=== PATIENT | male | born 1985 | race Hispanic/Latino ===

== ENCOUNTER 2017-01-27 17:20 | Emergency (ER) | payer MEDICAID, OTHER ==
[2017-01-27 17:30] VITALS: BMI 30.7
--- NOTE | 2017-01-27 18:25 | ED PDOC ---
Arrival/HPI - General Historian: Patient, Partner (Girl Friend) EM Caveat: Psychotic - History of Present Illness Time/Duration: > month Symptom Onset: Gradual Symptom Course: Worsening - General Chief Complaint: Psychiatric Evaluation Time Seen by Provider: 01/27/17 17:37 - History of Present Illness Narrative History of Present Illness (Text): 01/27/17 18:24 History obtained from chart review, Girl Friend at bedside. 32yo M with Past medical history including Anxiety, Depression, HIV, Schizophrenia here for evaluation of anxiety. Patient does not provide much history. Girlfriend at bedside provides most of the history. Patient has a history of multiple psychiatric issues, was seeing Dr. Holly in May 2016. She states that he was taking his meds at that time and was doing well. However , patient stopped taking his medications for the past few months. Girlfriend notes that his anxiety has gradually gotten worse since then. She notes increased anxiety due to financial constraints due to loss of employment as well. She states that he has had about 2 hours of sleep over the past 6 days. He recently traveled to [place] with his friend and returned with superficial wounds to the right knuckles. He states that he "just does not want to hurt my mother anymore." Patient does not provide any further history. Denies any pains. Psych: Dr. Holly PMHx: HIV, Schizophrenia, Anxiety, Depression Allergy: PCNs (Indra Guthrie) Past Medical History - Provider Review Nursing Documentation Reviewed: Yes - Past History Past History: Unable to Obtain - Infectious Disease Hx of Infectious Diseases: None - Tetanus Immunization Tetanus Immunization: Up to Date - Past Medical History Past Medical History: No Previous - Cardiac Hx Cardiac Disorders: No - Pulmonary Hx Respiratory Disorders: No - Neurological Hx Neurological Disorder: No - HEENT Hx HEENT Disorder: No - Renal Hx Renal Disorder: No - Endocrine/Metabolic Hx Endocrine Disorders: No - Hematological/Oncological Hx Blood Disorders: Yes - Integumentary Hx Dermatological Disorder: No - Musculoskeletal/Rheumatological Hx Musculoskeletal Disorders: No Hx Falls: No - Gastrointestinal Hx Gastrointestinal Disorders: No Other/Comment: elevated liver enzymes - Genitourinary/Gynecological Hx Genitourinary Disorders: No Hx Reproductive Disorders: No - Psychiatric Hx Anxiety: Yes Hx Depression: Yes Hx Schizophrenia: Yes Hx Substance Use: No (DENIES DRUG USE) - Surgical History Hx Orthopedic Surgery: Yes (left hand) - Anesthesia Hx Anesthesia: Yes Hx Anesthesia Reactions: No Hx Malignant Hyperthermia: No - Suicidal Assessment Feels Threatened In Home Enviroment: No Family/Social History - Physician Review Nursing Documentation Reviewed: Yes Family/Social History: Unknown Family HX Smoking Status: Heavy Smoker > 10 Cigarettes Daily Hx Alcohol Use: Yes (YESTERDAY) Frequency of alcohol use: Socially Hx Substance Use: No (DENIES DRUG USE) Substance used: marijuana Hx Substance Use Treatment: No Allergies/Home Meds Allergies/Adverse Reactions: Allergies Penicillins Allergy (Verified 01/27/17 17:29) ANGIOEDEMA Review of Systems - Review of Systems Systems not reviewed;Unavailable: Psychotic Physical Exam - Physical Exam Physical Exam Limitations: Psychotic, Uncooperative Vital Signs Reviewed: Yes Temperature: Afebrile Blood Pressure: Hypertensive Pulse: Tachycardic Respiratory Rate: Normal Appearance: Positive for: Well-Appearing, Non-Toxic, Comfortable Pain Distress: None Mental Status: Positive for: Agitated - Systems Exam Head: Present: Atraumatic, Normocephalic Extroacular Muscles: Present: EOMI Mouth: Present: Moist Mucous Membranes Respiratory/Chest: Present: Clear to Auscultation, Good Air Exchange. No: Respiratory Distress, Accessory Muscle Use, Wheezes, Decreased Breath Sounds Cardiovascular: Present: Normal S1, S2. No: Murmurs Abdomen: No: Tenderness, Distention, Rebound, Guarding, McBurney's Point Tender Upper Extremity: Present: Other (right hand knuckle old wounds, no induration, no erythema, no drainage) Psychiatric: Present: Anxious, Agitated, Hallucinations, Other (Fidgety ) Medical Decision Making ED Course and Treatment: 01/27/17 18:46 32yo M here for psych eval - Agitated. Stopped taking his psych meds for multiple months. - CBC/CMP - Urinalysis, UDS - EKG, Chest X-ray - Xanax 0.5mg PO - Awaiting results prior to psych eval (JerriIndra) chest xray: No active disease, interpreted by me. EKG: Ordered, reviewed, and independently interpreted the EKG. Rate : 97 BPM Rhythm : NSR Interpretation : QRS 100, other intervals normal, normal axis Comparison : No new ST/T changes compared with EKG from 05/31/16 Patient Seen With Resident: In agreement with resident note which contains more details about the patient. Patient was seen and evaluated with resident. Came up with plan and treatment together. A 32 year old male with anxiety. Additional HPI as noted by resident. On physical exam, patient is agitated and anxious. Patient has old wounds on right hand knuckle, no erythema, drainage or induration. Ordered EKG, chest xray, labs and urinalysis. Will give patient Xanax. 01/27/17 21:04 Patient has been medically cleared for PES evaluation. 01/27/17 21:29 Patient seen by PES - will need [facility] [place]. 01/27/17 22:35 Patient awaiting [facility] [place]; will endorse to Dr. Clements. (Anahi Albrecht) - Lab Interpretations Lab Results: 01/27/17 18:25 01/27/17 18:25 Lab Results 01/27/17 21:11: Alcohol, Quantitative < 10 01/27/17 18:25: Urine Color Yellow, Urine Appearance Clear, Urine pH 6.0, Ur Specific [place] >= 1.030, Urine Protein Negative, Urine Glucose (UA) Negative, Urine Ketones Trace H, Urine Blood Negative, Urine Nitrate Negative, Urine Bilirubin Negative, Urine Urobilinogen 0.2, Ur Leukocyte Esterase Negative 01/27/17 18:25: Urine Opiates Screen Negative, Urine Methadone Screen Negative, Ur Barbiturates Screen Negative, Ur Phencyclidine Scrn Negative, Ur Amphetamines Screen Negative, U Benzodiazepines Scrn Negative, U Oth Cocaine Metabols Negative, U Cannabinoids Screen Positive H 01/27/17 18:25: Sodium 141, Potassium 3.6, Chloride 108 H, Carbon Dioxide 24, Anion Gap 13, BUN 13, Creatinine 0.7, Est GFR ( Amer) > 60, Est GFR (Non- Af Amer) > 60, Random Glucose 107, Calcium 9.7, Total Bilirubin 0.7, AST 50, ALT 50, Alkaline Phosphatase 65, Total Protein 7.4, Albumin 4.4, Globulin 3.0, Albumin/Globulin Ratio 1.5, Lipase 75 01/27/17 18:25: WBC 7.7 D, RBC 4.06, Hgb 12.6 L, Hct 35.9 L, MCV 88.4, MCH 31.0 , MCHC 35.1, RDW 12.8, Plt Count 370, MPV 9.7 - RAD Interpretation Radiology Orders: 01/27/17 18:13 CHEST PORTABLE [RAD] Stat - Medication Orders Current Medication Orders: Discontinued Medications Alprazolam (Xanax) 0.5 mg PO STAT STA PRN Reason: Protocol Stop: 01/27/17 18:56 Last Admin: 01/27/17 19:23 Dose: 0.5 mg - PA / SENIOR SUSTAINABILITY CONSULTANT / Resident Statement MD/DO has reviewed & agrees with the documentation as recorded. MD/DO has examined the patient and agrees with the treatment plan. Disposition/Present on Arrival - Present on Arrival Any Indicators Present on Arrival: No History of DVT/PE: No History of Uncontrolled Diabetes: No Urinary Catheter: No History of Decub. Ulcer: No History Surgical Site Infection Following: None - Disposition Have Diagnosis and Disposition been Completed?: No Disposition Time: 23:00 - Disposition Diagnosis: Anxiety Patient Problems: Current Active Problems Problem Status Onset Anxiety Acute Condition: STABLE Referrals: Marcia [place] MD [Primary Care Provider] - Follow up with primary Forms: [employer] (Chinese)
[2017-01-27 18:36] LABS: HEMOGLOBIN 12.6 gm/dL (14.0-18.0); MEAN CELL VOLUME 88.4 fL (80.0-105.0); MEAN CORPUSCULAR HGB CONC 35.1 g/dl (31.0-37.0); MEAN PLATELET VOLUME 9.7 fl (7.0-11.0); RBC 4.06 10^6/uL (3.5-6.1); RED CELL DISTRIBUTION WIDTH 12.8 % (11.5-14.5); WHITE BLOOD COUNT 7.7 10^3/ul (4.5-11.0)
[2017-01-27 18:37] LABS: URINE BILIRUBIN NEGATIVE (NEGATIVE); URINE BLOOD NEGATIVE (NEGATIVE); URINE GLUCOSE (UA) NEGATIVE (NEGATIVE); URINE LEUKOCYTE ESTERASE NEGATIVE Leu/uL (NEGATIVE); URINE NITRATE NEGATIVE (NEGATIVE); URINE PROTEIN NEGATIVE mg/dL (<30 mg/dL); URINE UROBILINOGEN 0.2 E.U./dL (<1 E.U./dL)
[2017-01-27 18:39] LABS: URINE APPEARANCE CLEAR (CLEAR); URINE COLOR YELLOW (YELLOW)
[2017-01-27 18:48] LABS: ALB/GLOB RATIO 1.5 (1.1-1.8); ALBUMIN 4.4 g/dL (3.0-4.8); ALT/SGPT 50 U/L (7-56); AST/SGOT 50 U/L (15-59); BLOOD UREA NITROGEN 13 mg/dL (7-21); CALCIUM 9.7 mg/dL (8.4-10.5); GFR AFRICAN-AMERICAN > 60; GFR NON-AFRICAN AMERICAN > 60; LIPASE 75 U/L (23-300)
[2017-01-27 18:57] LABS: BARBITURATES, UR NEGATIVE (NEGATIVE); BENZODIAZEPINES, UR NEGATIVE (NEGATIVE); OPIATES, UR NEGATIVE (NEGATIVE); PHENCYCLIDINE, UR NEGATIVE (NEGATIVE)
--- NOTE | 2017-01-27 22:48 | ED PDOC ---
Physical Exam Vital Signs Reviewed: Yes Vital Signs Temp Pulse Resp BP Pulse Ox 01/28/17 15:00 98.5 F 77 18 130/91 H 99 01/28/17 13:00 98.0 F 72 18 110/74 99 01/28/17 11:00 98.3 F 92 H 18 132/87 99 01/28/17 09:00 98.1 F 66 18 102/66 98 01/28/17 07:30 98.3 F 72 18 118/81 100 01/28/17 04:00 98.3 F 69 18 122/87 100 01/28/17 02:00 98.3 F 74 18 121/75 100 01/27/17 23:52 98.3 F 83 18 138/85 99 01/27/17 19:28 90 16 127/79 97 01/27/17 17:30 99.6 F 101 H 20 147/70 99 Temperature: Afebrile Blood Pressure: Normal Pulse: Regular Respiratory Rate: Normal Appearance: Positive for: Well-Appearing, Non-Toxic, Comfortable Pain Distress: None Mental Status: Positive for: Alert and Oriented X 3 Medical Decision Making ED Course and Treatment: 01/27/17 23:00 Case endorsed to me by Dr. Albrecht, pending [facility] bed availability for transfer. 01/28/17 07:00 Pt in stable condition. Case endorsed to Dr. Rain, pending [facility] bed availability for transfer. - Lab Interpretations Lab Results: 01/27/17 18:25 01/27/17 18:25 Lab Results 01/27/17 21:11: Alcohol, Quantitative < 10 01/27/17 18:25: Urine Color Yellow, Urine Appearance Clear, Urine pH 6.0, Ur Specific [place] >= 1.030, Urine Protein Negative, Urine Glucose (UA) Negative, Urine Ketones Trace H, Urine Blood Negative, Urine Nitrate Negative, Urine Bilirubin Negative, Urine Urobilinogen 0.2, Ur Leukocyte Esterase Negative 01/27/17 18:25: Urine Opiates Screen Negative, Urine Methadone Screen Negative, Ur Barbiturates Screen Negative, Ur Phencyclidine Scrn Negative, Ur Amphetamines Screen Negative, U Benzodiazepines Scrn Negative, U Oth Cocaine Metabols Negative, U Cannabinoids Screen Positive H 01/27/17 18:25: Sodium 141, Potassium 3.6, Chloride 108 H, Carbon Dioxide 24, Anion Gap 13, BUN 13, Creatinine 0.7, Est GFR ( Amer) > 60, Est GFR (Non- Af Amer) > 60, Random Glucose 107, Calcium 9.7, Total Bilirubin 0.7, AST 50, ALT 50, Alkaline Phosphatase 65, Total Protein 7.4, Albumin 4.4, Globulin 3.0, Albumin/Globulin Ratio 1.5, Lipase 75 01/27/17 18:25: WBC 7.7 D, RBC 4.06, Hgb 12.6 L, Hct 35.9 L, MCV 88.4, MCH 31.0 , MCHC 35.1, RDW 12.8, Plt Count 370, MPV 9.7 - RAD Interpretation Radiology Orders: 01/27/17 18:13 CHEST PORTABLE [RAD] Stat - Medication Orders Current Medication Orders: Discontinued Medications Alprazolam (Xanax) 0.5 mg PO STAT STA PRN Reason: Protocol Stop: 01/27/17 18:56 Last Admin: 01/27/17 19:23 Dose: 0.5 mg Lorazepam (Ativan) Confirm Administered Dose 2 mg .ROUTE .STK-MED ONE Stop: 01/27/17 23:31 Last Admin: 01/27/17 23:52 Dose: Lorazepam (Ativan) 2 mg IVP ONCE STA PRN Reason: Protocol Stop: 01/27/17 23:48 Last Admin: 01/27/17 23:57 Dose: 2 mg Lorazepam (Ativan) Confirm Administered Dose 2 mg .ROUTE .STK-MED ONE Stop: 01/28/17 05:16 Last Admin: 01/28/17 06:41 Dose: Lorazepam (Ativan) 2 mg IVP ONCE ONE PRN Reason: Protocol Stop: 01/28/17 06:08 Last Admin: 01/28/17 06:41 Dose: 2 mg Lorazepam (Ativan) 0.5 mg PO STAT STA PRN Reason: Protocol Stop: 01/28/17 12:13 Last Admin: 01/28/17 16:14 Dose: Lorazepam (Ativan) 2 mg IVP ONCE ONE PRN Reason: Protocol Stop: 01/28/17 12:18 Last Admin: 01/28/17 12:29 Dose: 2 mg Lorazepam (Ativan) 2 mg IM ONCE ONE PRN Reason: Protocol Stop: 01/28/17 15:50 Last Admin: 01/28/17 16:14 Dose: 2 mg Ziprasidone (Geodon Inj) Confirm Administered Dose 20 mg IM .STK-MED ONE Stop: 01/27/17 23:47 Last Admin: 01/27/17 23:52 Dose: Ziprasidone (Geodon Inj) 10 mg IM STAT STA PRN Reason: Protocol Stop: 01/27/17 23:48 Last Admin: 01/27/17 23:57 Dose: 10 mg Disposition/Present on Arrival - Present on Arrival Any Indicators Present on Arrival: No History of DVT/PE: No History of Uncontrolled Diabetes: No Urinary Catheter: No History of Decub. Ulcer: No History Surgical Site Infection Following: None - Disposition Have Diagnosis and Disposition been Completed?: Yes Diagnosis: Anxiety, Bipolar disorder without psychotic features Disposition: Transfer [facility] Disposition Time: 07:00 Condition: STABLE Referrals: Marcia [place] MD [Primary Care Provider] - Follow up with primary Forms: [employer] (Urdu)
--- NOTE | 2017-01-28 07:33 | ED PDOC ---
Physical Exam Vital Signs Reviewed: Yes Vital Signs Temp Pulse Resp BP Pulse Ox 01/28/17 07:30 98.3 F 72 18 118/81 100 01/28/17 04:00 98.3 F 69 18 122/87 100 01/28/17 02:00 98.3 F 74 18 121/75 100 01/27/17 23:52 98.3 F 83 18 138/85 99 01/27/17 19:28 90 16 127/79 97 01/27/17 17:30 99.6 F 101 H 20 147/70 99 Temperature: Afebrile Blood Pressure: Normal Pulse: Tachycardic Respiratory Rate: Normal Medical Decision Making ED Course and Treatment: 01/28/17 07:33 Case endorsed to me by Dr. Clements, pending [facility] [place] for [place]. - Lab Interpretations Lab Results: 01/27/17 18:25 01/27/17 18:25 Lab Results 01/27/17 21:11: Alcohol, Quantitative < 10 01/27/17 18:25: Urine Color Yellow, Urine Appearance Clear, Urine pH 6.0, Ur Specific [place] >= 1.030, Urine Protein Negative, Urine Glucose (UA) Negative, Urine Ketones Trace H, Urine Blood Negative, Urine Nitrate Negative, Urine Bilirubin Negative, Urine Urobilinogen 0.2, Ur Leukocyte Esterase Negative 01/27/17 18:25: Urine Opiates Screen Negative, Urine Methadone Screen Negative, Ur Barbiturates Screen Negative, Ur Phencyclidine Scrn Negative, Ur Amphetamines Screen Negative, U Benzodiazepines Scrn Negative, U Oth Cocaine Metabols Negative, U Cannabinoids Screen Positive H 01/27/17 18:25: Sodium 141, Potassium 3.6, Chloride 108 H, Carbon Dioxide 24, Anion Gap 13, BUN 13, Creatinine 0.7, Est GFR ( Amer) > 60, Est GFR (Non- Af Amer) > 60, Random Glucose 107, Calcium 9.7, Total Bilirubin 0.7, AST 50, ALT 50, Alkaline Phosphatase 65, Total Protein 7.4, Albumin 4.4, Globulin 3.0, Albumin/Globulin Ratio 1.5, Lipase 75 01/27/17 18:25: WBC 7.7 D, RBC 4.06, Hgb 12.6 L, Hct 35.9 L, MCV 88.4, MCH 31.0 , MCHC 35.1, RDW 12.8, Plt Count 370, MPV 9.7 - RAD Interpretation Radiology Orders: 01/27/17 18:13 CHEST PORTABLE [RAD] Stat - Medication Orders Current Medication Orders: Discontinued Medications Alprazolam (Xanax) 0.5 mg PO STAT STA PRN Reason: Protocol Stop: 01/27/17 18:56 Last Admin: 01/27/17 19:23 Dose: 0.5 mg Lorazepam (Ativan) Confirm Administered Dose 2 mg .ROUTE .STK-MED ONE Stop: 01/27/17 23:31 Last Admin: 01/27/17 23:52 Dose: Lorazepam (Ativan) 2 mg IVP ONCE STA PRN Reason: Protocol Stop: 01/27/17 23:48 Last Admin: 01/27/17 23:57 Dose: 2 mg Lorazepam (Ativan) Confirm Administered Dose 2 mg .ROUTE .STK-MED ONE Stop: 01/28/17 05:16 Last Admin: 01/28/17 06:41 Dose: Lorazepam (Ativan) 2 mg IVP ONCE ONE PRN Reason: Protocol Stop: 01/28/17 06:08 Last Admin: 01/28/17 06:41 Dose: 2 mg Ziprasidone (Geodon Inj) Confirm Administered Dose 20 mg IM .STK-MED ONE Stop: 01/27/17 23:47 Last Admin: 01/27/17 23:52 Dose: Ziprasidone (Geodon Inj) 10 mg IM STAT STA PRN Reason: Protocol Stop: 01/27/17 23:48 Last Admin: 01/27/17 23:57 Dose: 10 mg Disposition/Present on Arrival - Present on Arrival Any Indicators Present on Arrival: No History of DVT/PE: No History of Uncontrolled Diabetes: No Urinary Catheter: No History of Decub. Ulcer: No History Surgical Site Infection Following: None - Disposition Have Diagnosis and Disposition been Completed?: Yes Diagnosis: Anxiety, Bipolar disorder without psychotic features Disposition: Trans to Other Acute Care Hosp Disposition Time: 07:00 Condition: STABLE Referrals: Marcia [place] MD [Primary Care Provider] - Follow up with primary Forms: [employer] (Pakistani)
--- NOTE | 2017-01-28 09:49 | RAD ---
HISTORY: eval COMPARISON: 05/31/2016 FINDINGS: LUNGS: No active pulmonary disease. PLEURA: No significant pleural effusion identified, no pneumothorax apparent. CARDIOVASCULAR: Normal. OSSEOUS STRUCTURES: No significant abnormalities. VISUALIZED UPPER ABDOMEN: Normal. OTHER FINDINGS: None. IMPRESSION: No active disease.
--- NOTE | 2017-01-28 20:49 | ED PDOC ---
Physical Exam Vital Signs Reviewed: Yes Vital Signs Temp Pulse Resp BP Pulse Ox 01/28/17 15:00 98.5 F 77 18 130/91 H 99 01/28/17 13:00 98.0 F 72 18 110/74 99 01/28/17 11:00 98.3 F 92 H 18 132/87 99 01/28/17 09:00 98.1 F 66 18 102/66 98 01/28/17 07:30 98.3 F 72 18 118/81 100 01/28/17 04:00 98.3 F 69 18 122/87 100 01/28/17 02:00 98.3 F 74 18 121/75 100 01/27/17 23:52 98.3 F 83 18 138/85 99 01/27/17 19:28 90 16 127/79 97 01/27/17 17:30 99.6 F 101 H 20 147/70 99 Temperature: Afebrile Blood Pressure: Normal Pulse: Regular Respiratory Rate: Normal Appearance: Positive for: Well-Appearing, Non-Toxic, Comfortable Pain Distress: None Mental Status: Positive for: Alert and Oriented X 3 Medical Decision Making ED Course and Treatment: 01/28/17 19:00 Patient signed out to me by . Pending [facility] bed availability for transfer. 01/29/17 07:00 Patient in stable condition. Patient signed out to pending [facility] bed availability for transfer. - Lab Interpretations Lab Results: 01/27/17 18:25 01/27/17 18:25 Lab Results 01/27/17 21:11: Alcohol, Quantitative < 10 01/27/17 18:25: Urine Color Yellow, Urine Appearance Clear, Urine pH 6.0, Ur Specific [place] >= 1.030, Urine Protein Negative, Urine Glucose (UA) Negative, Urine Ketones Trace H, Urine Blood Negative, Urine Nitrate Negative, Urine Bilirubin Negative, Urine Urobilinogen 0.2, Ur Leukocyte Esterase Negative 01/27/17 18:25: Urine Opiates Screen Negative, Urine Methadone Screen Negative, Ur Barbiturates Screen Negative, Ur Phencyclidine Scrn Negative, Ur Amphetamines Screen Negative, U Benzodiazepines Scrn Negative, U Oth Cocaine Metabols Negative, U Cannabinoids Screen Positive H 01/27/17 18:25: Sodium 141, Potassium 3.6, Chloride 108 H, Carbon Dioxide 24, Anion Gap 13, BUN 13, Creatinine 0.7, Est GFR ( Amer) > 60, Est GFR (Non- Af Amer) > 60, Random Glucose 107, Calcium 9.7, Total Bilirubin 0.7, AST 50, ALT 50, Alkaline Phosphatase 65, Total Protein 7.4, Albumin 4.4, Globulin 3.0, Albumin/Globulin Ratio 1.5, Lipase 75 01/27/17 18:25: WBC 7.7 D, RBC 4.06, Hgb 12.6 L, Hct 35.9 L, MCV 88.4, MCH 31.0 , MCHC 35.1, RDW 12.8, Plt Count 370, MPV 9.7 - RAD Interpretation Radiology Orders: 01/27/17 18:13 CHEST PORTABLE [RAD] Stat - Medication Orders Current Medication Orders: Discontinued Medications Alprazolam (Xanax) 0.5 mg PO STAT STA PRN Reason: Protocol Stop: 01/27/17 18:56 Last Admin: 01/27/17 19:23 Dose: 0.5 mg Lorazepam (Ativan) Confirm Administered Dose 2 mg .ROUTE .STK-MED ONE Stop: 01/27/17 23:31 Last Admin: 01/27/17 23:52 Dose: Lorazepam (Ativan) 2 mg IVP ONCE STA PRN Reason: Protocol Stop: 01/27/17 23:48 Last Admin: 01/27/17 23:57 Dose: 2 mg Lorazepam (Ativan) Confirm Administered Dose 2 mg .ROUTE .STK-MED ONE Stop: 01/28/17 05:16 Last Admin: 01/28/17 06:41 Dose: Lorazepam (Ativan) 2 mg IVP ONCE ONE PRN Reason: Protocol Stop: 01/28/17 06:08 Last Admin: 01/28/17 06:41 Dose: 2 mg Lorazepam (Ativan) 0.5 mg PO STAT STA PRN Reason: Protocol Stop: 01/28/17 12:13 Last Admin: 01/28/17 16:14 Dose: Lorazepam (Ativan) 2 mg IVP ONCE ONE PRN Reason: Protocol Stop: 01/28/17 12:18 Last Admin: 01/28/17 12:29 Dose: 2 mg Lorazepam (Ativan) 2 mg IM ONCE ONE PRN Reason: Protocol Stop: 01/28/17 15:50 Last Admin: 01/28/17 16:14 Dose: 2 mg Ziprasidone (Geodon Inj) Confirm Administered Dose 20 mg IM .STK-MED ONE Stop: 01/27/17 23:47 Last Admin: 01/27/17 23:52 Dose: Ziprasidone (Geodon Inj) 10 mg IM STAT STA PRN Reason: Protocol Stop: 01/27/17 23:48 Last Admin: 01/27/17 23:57 Dose: 10 mg - Scribe Statement The provider has reviewed the documentation as recorded by the Jak Borrero Provider Attestation: Provider Scribe Attestation: All medical record entries made by the Jonibe were at my direction and personally dictated by me. I have reviewed the chart and agree that the record accurately reflects my personal performance of the history, physical exam, medical decision making, and the department course for this patient. I have also personally directed, reviewed, and agree with the discharge instructions and disposition. Disposition/Present on Arrival - Present on Arrival Any Indicators Present on Arrival: No History of DVT/PE: No History of Uncontrolled Diabetes: No Urinary Catheter: No History of Decub. Ulcer: No History Surgical Site Infection Following: None - Disposition Have Diagnosis and Disposition been Completed?: Yes Diagnosis: Anxiety, Bipolar disorder without psychotic features Disposition: Transfer [facility] Disposition Time: 07:00 Condition: STABLE Referrals: Marcia [place] MD [Primary Care Provider] - Follow up with primary Forms: [employer] (Divehi)
--- NOTE | 2017-01-29 07:08 | ED PDOC ---
Physical Exam Vital Signs Temp Pulse Resp BP Pulse Ox 01/29/17 15:46 83 18 140/70 100 01/29/17 12:00 98.7 F 76 18 130/77 97 01/28/17 15:00 98.5 F 77 18 130/91 H 99 01/28/17 13:00 98.0 F 72 18 110/74 99 01/28/17 11:00 98.3 F 92 H 18 132/87 99 01/28/17 09:00 98.1 F 66 18 102/66 98 01/28/17 07:30 98.3 F 72 18 118/81 100 01/28/17 04:00 98.3 F 69 18 122/87 100 01/28/17 02:00 98.3 F 74 18 121/75 100 01/27/17 23:52 98.3 F 83 18 138/85 99 01/27/17 19:28 90 16 127/79 97 01/27/17 17:30 99.6 F 101 H 20 147/70 99 Medical Decision Making ED Course and Treatment: 01/29/17 07:00 Patient signed out to me by Dr. Clements. [place] [facility] [place]. 01/29/17 07:30 pt uncooperative in the ER, leaving his rooms, acting inappropriately, danger to himself and other patients. Attempted to console pt and offered oral sedative /anti-anxiolytic, pt refused. IM medicine ordered. 01/29/17 19:[address] Mccord in stable condition, pending transfer - Lab Interpretations Lab Results: 01/27/17 18:25 01/27/17 18:25 Lab Results 01/27/17 21:11: Alcohol, Quantitative < 10 01/27/17 18:25: Urine Color Yellow, Urine Appearance Clear, Urine pH 6.0, Ur Specific [place] >= 1.030, Urine Protein Negative, Urine Glucose (UA) Negative, Urine Ketones Trace H, Urine Blood Negative, Urine Nitrate Negative, Urine Bilirubin Negative, Urine Urobilinogen 0.2, Ur Leukocyte Esterase Negative 01/27/17 18:25: Urine Opiates Screen Negative, Urine Methadone Screen Negative, Ur Barbiturates Screen Negative, Ur Phencyclidine Scrn Negative, Ur Amphetamines Screen Negative, U Benzodiazepines Scrn Negative, U Oth Cocaine Metabols Negative, U Cannabinoids Screen Positive H 01/27/17 18:25: Sodium 141, Potassium 3.6, Chloride 108 H, Carbon Dioxide 24, Anion Gap 13, BUN 13, Creatinine 0.7, Est GFR ( Amer) > 60, Est GFR (Non- Af Amer) > 60, Random Glucose 107, Calcium 9.7, Total Bilirubin 0.7, AST 50, ALT 50, Alkaline Phosphatase 65, Total Protein 7.4, Albumin 4.4, Globulin 3.0, Albumin/Globulin Ratio 1.5, Lipase 75 01/27/17 18:25: WBC 7.7 D, RBC 4.06, Hgb 12.6 L, Hct 35.9 L, MCV 88.4, MCH 31.0 , MCHC 35.1, RDW 12.8, Plt Count 370, MPV 9.7 - RAD Interpretation Radiology Orders: 01/27/17 18:13 CHEST PORTABLE [RAD] Stat - Medication Orders Current Medication Orders: Quetiapine Fumarate (Seroquel) 50 mg PO AMHS BOB PRN Reason: Protocol Last Admin: 01/29/17 11:11 Dose: 50 mg Trazodone HCl (Desyrel) 50 mg PO HS PRN PRN Reason: Insomnia Ziprasidone (Geodon Inj) 20 mg IM Q6H PRN; Protocol PRN Reason: severe agitation/psychosis Last Admin: 01/29/17 15:40 Dose: 20 mg Discontinued Medications Alprazolam (Xanax) 0.5 mg PO STAT STA PRN Reason: Protocol Stop: 01/27/17 18:56 Last Admin: 01/27/17 19:23 Dose: 0.5 mg Diphenhydramine HCl (Benadryl) Confirm Administered Dose 50 mg .ROUTE .STK-MED ONE Stop: 01/29/17 16:32 Last Admin: 01/29/17 16:35 Dose: 50 mg Haloperidol Lactate (Haldol) Confirm Administered Dose 5 mg .ROUTE .STK-MED ONE Stop: 01/29/17 16:33 Last Admin: 01/29/17 16:35 Dose: 5 mg Lorazepam (Ativan) Confirm Administered Dose 2 mg .ROUTE .STK-MED ONE Stop: 01/27/17 23:31 Last Admin: 01/27/17 23:52 Dose: Lorazepam (Ativan) 2 mg IVP ONCE STA PRN Reason: Protocol Stop: 01/27/17 23:48 Last Admin: 01/27/17 23:57 Dose: 2 mg Lorazepam (Ativan) Confirm Administered Dose 2 mg .ROUTE .STK-MED ONE Stop: 01/28/17 05:16 Last Admin: 01/28/17 06:41 Dose: Lorazepam (Ativan) 2 mg IVP ONCE ONE PRN Reason: Protocol Stop: 01/28/17 06:08 Last Admin: 01/28/17 06:41 Dose: 2 mg Lorazepam (Ativan) 0.5 mg PO STAT STA PRN Reason: Protocol Stop: 01/28/17 12:13 Last Admin: 01/28/17 16:14 Dose: Lorazepam (Ativan) 2 mg IVP ONCE ONE PRN Reason: Protocol Stop: 01/28/17 12:18 Last Admin: 01/28/17 12:29 Dose: 2 mg Lorazepam (Ativan) 2 mg IM ONCE ONE PRN Reason: Protocol Stop: 01/28/17 15:50 Last Admin: 01/28/17 16:14 Dose: 2 mg Lorazepam (Ativan) Confirm Administered Dose 2 mg .ROUTE .STK-MED ONE Stop: 01/29/17 16:33 Last Admin: 01/29/17 16:35 Dose: 2 mg Ziprasidone (Geodon Inj) Confirm Administered Dose 20 mg IM .STK-MED ONE Stop: 01/27/17 23:47 Last Admin: 01/27/17 23:52 Dose: Ziprasidone (Geodon Inj) 10 mg IM STAT STA PRN Reason: Protocol Stop: 01/27/17 23:48 Last Admin: 01/27/17 23:57 Dose: 10 mg Ziprasidone (Geodon Inj) 20 mg IM STAT STA PRN Reason: Protocol Stop: 01/29/17 07:21 Last Admin: 01/29/17 07:37 Dose: 20 mg - Scribe Statement The provider has reviewed the documentation as recorded by the Jak Fernández Provider Scribe Attestation: All medical record entries made by the Scribe were at my direction and personally dictated by me. I have reviewed the chart and agree that the record accurately reflects my personal performance of the history, physical exam, medical decision making, and the department course for this patient. I have also personally directed, reviewed, and agree with the discharge instructions and disposition. Disposition/Present on Arrival - Present on Arrival Any Indicators Present on Arrival: No History of DVT/PE: No History of Uncontrolled Diabetes: No Urinary Catheter: No History of Decub. Ulcer: No History Surgical Site Infection Following: None - Disposition Have Diagnosis and Disposition been Completed?: Yes Diagnosis: Anxiety Disposition: [place] [facility] [place]position Time: 19:00 Patient Plan: [place] [place] Patient Problems: Current Active Problems Problem Status Onset Anxiety Acute Condition: STABLE Referrals: Marcia Singer MD [Primary Care Provider] - Follow up with primary Forms: [employer] (Cymraes)
--- NOTE | 2017-01-29 09:39 | CARD ---
APPROVED REPORT EKG Measurement Heart [id number] 150P [id number] <Conclusion> Inverted P waves 2,3,F: Coronary Sinus rhythm NSSTW changes
[2017-01-29] MEDS ORDERED: DiphenhydrAMINE 50 mg/ml Inj ONE (16:31)
--- NOTE | 2017-01-29 19:41 | ED PDOC ---
Physical Exam - Physical Exam Narrative Physical Exam (Text): 01/29/17 19:38 Case endorsed to me from .Pt. with hx. of bizarre,delusional behaviour.Medical cleared evaluated by [facility] [place] screeners has been on hold in ED awaiting bed avilability/transfer to [facility] [place].Pt. currently stable,resting comfortably. Vital Signs Temp Pulse Resp BP Pulse Ox 01/30/17 04:00 66 18 123/67 99 01/30/17 02:00 64 16 125/64 100 01/30/17 00:00 65 16 125/67 99 01/29/17 22:00 98.0 F 63 16 124/63 100 01/29/17 21:00 79 18 132/84 100 01/29/17 19:00 75 18 135/73 100 01/29/17 15:46 83 18 140/70 100 01/29/17 12:00 98.7 F 76 18 130/77 97 01/28/17 15:00 98.5 F 77 18 130/91 H 99 01/28/17 13:00 98.0 F 72 18 110/74 99 01/28/17 11:00 98.3 F 92 H 18 132/87 99 01/28/17 09:00 98.1 F 66 18 102/66 98 01/28/17 07:30 98.3 F 72 18 118/81 100 01/28/17 04:00 98.3 F 69 18 122/87 100 01/28/17 02:00 98.3 F 74 18 121/75 100 01/27/17 23:52 98.3 F 83 18 138/85 99 01/27/17 19:28 90 16 127/79 97 01/27/17 17:30 99.6 F 101 H 20 147/70 99 Medical Decision Making ED Course and Treatment: 01/30/17 07:00 Case endorsed to .Pt. resting comfortably awaiting transfer to [facility] [place]. - Lab Interpretations Lab Results: 01/27/17 18:25 01/27/17 18:25 Lab Results 01/27/17 21:11: Alcohol, Quantitative < 10 01/27/17 18:25: Urine Color Yellow, Urine Appearance Clear, Urine pH 6.0, Ur Specific [place] >= 1.030, Urine Protein Negative, Urine Glucose (UA) Negative, Urine Ketones Trace H, Urine Blood Negative, Urine Nitrate Negative, Urine Bilirubin Negative, Urine Urobilinogen 0.2, Ur Leukocyte Esterase Negative 01/27/17 18:25: Urine Opiates Screen Negative, Urine Methadone Screen Negative, Ur Barbiturates Screen Negative, Ur Phencyclidine Scrn Negative, Ur Amphetamines Screen Negative, U Benzodiazepines Scrn Negative, U Oth Cocaine Metabols Negative, U Cannabinoids Screen Positive H 01/27/17 18:25: Sodium 141, Potassium 3.6, Chloride 108 H, Carbon Dioxide 24, Anion Gap 13, BUN 13, Creatinine 0.7, Est GFR ( Amer) > 60, Est GFR (Non- Af Amer) > 60, Random Glucose 107, Calcium 9.7, Total Bilirubin 0.7, AST 50, ALT 50, Alkaline Phosphatase 65, Total Protein 7.4, Albumin 4.4, Globulin 3.0, Albumin/Globulin Ratio 1.5, Lipase 75 01/27/17 18:25: WBC 7.7 D, RBC 4.06, Hgb 12.6 L, Hct 35.9 L, MCV 88.4, MCH 31.0 , MCHC 35.1, RDW 12.8, Plt Count 370, MPV 9.7 - RAD Interpretation Radiology Orders: 01/27/17 18:13 CHEST PORTABLE [RAD] Stat - Medication Orders Current Medication Orders: Quetiapine Fumarate (Seroquel) 50 mg PO AMHS BOB PRN Reason: Protocol Last Admin: 01/29/17 22:56 Dose: 50 mg Trazodone HCl (Desyrel) 50 mg PO HS PRN PRN Reason: Insomnia Last Admin: 01/29/17 22:56 Dose: 50 mg Ziprasidone (Geodon Inj) 20 mg IM Q6H PRN; Protocol PRN Reason: severe agitation/psychosis Last Admin: 01/29/17 15:40 Dose: 20 mg Discontinued Medications Alprazolam (Xanax) 0.5 mg PO STAT STA PRN Reason: Protocol Stop: 01/27/17 18:56 Last Admin: 01/27/17 19:23 Dose: 0.5 mg Diphenhydramine HCl (Benadryl) Confirm Administered Dose 50 mg .ROUTE .[facility]-MED ONE Stop: 01/29/17 16:32 Last Admin: 01/29/17 16:35 Dose: 50 mg Haloperidol Lactate (Haldol) Confirm Administered Dose 5 mg .ROUTE .STK-MED ONE Stop: 01/29/17 16:33 Last Admin: 01/29/17 16:35 Dose: 5 mg Lorazepam (Ativan) Confirm Administered Dose 2 mg .ROUTE .STK-MED ONE Stop: 01/27/17 23:31 Last Admin: 01/27/17 23:52 Dose: Lorazepam (Ativan) 2 mg IVP ONCE STA PRN Reason: Protocol Stop: 01/27/17 23:48 Last Admin: 01/27/17 23:57 Dose: 2 mg Lorazepam (Ativan) Confirm Administered Dose 2 mg .ROUTE .STK-MED ONE Stop: 01/28/17 05:16 Last Admin: 01/28/17 06:41 Dose: Lorazepam (Ativan) 2 mg IVP ONCE ONE PRN Reason: Protocol Stop: 01/28/17 06:08 Last Admin: 01/28/17 06:41 Dose: 2 mg Lorazepam (Ativan) 0.5 mg PO STAT STA PRN Reason: Protocol Stop: 01/28/17 12:13 Last Admin: 01/28/17 16:14 Dose: Lorazepam (Ativan) 2 mg IVP ONCE ONE PRN Reason: Protocol Stop: 01/28/17 12:18 Last Admin: 01/28/17 12:29 Dose: 2 mg Lorazepam (Ativan) 2 mg IM ONCE ONE PRN Reason: Protocol Stop: 01/28/17 15:50 Last Admin: 01/28/17 16:14 Dose: 2 mg Lorazepam (Ativan) Confirm Administered Dose 2 mg .ROUTE .STK-MED ONE Stop: 01/29/17 16:33 Last Admin: 01/29/17 16:35 Dose: 2 mg Ziprasidone (Geodon Inj) Confirm Administered Dose 20 mg IM .STK-MED ONE Stop: 01/27/17 23:47 Last Admin: 01/27/17 23:52 Dose: Ziprasidone (Geodon Inj) 10 mg IM STAT STA PRN Reason: Protocol Stop: 01/27/17 23:48 Last Admin: 01/27/17 23:57 Dose: 10 mg Ziprasidone (Geodon Inj) 20 mg IM STAT STA PRN Reason: Protocol Stop: 01/29/17 07:21 Last Admin: 01/29/17 07:37 Dose: 20 mg Disposition/Present on Arrival - Present on Arrival Any Indicators Present on Arrival: No History of DVT/PE: No History of Uncontrolled Diabetes: No Urinary Catheter: No History of Decub. Ulcer: No History Surgical Site Infection Following: None - Disposition Have Diagnosis and Disposition been Completed?: No Diagnosis: Anxiety, Bipolar disorder without psychotic features Disposition Time: 07:00 Patient Problems: Current Active Problems Problem Status Onset Anxiety Acute Bipolar disorder without psychotic features Acute Condition: STABLE Referrals: Marcia Singer MD [Primary Care Provider] - Follow up with primary Forms: [employer] (Faroese)
[2017-01-29 22:45] VITALS: TEMP 98
--- NOTE | 2017-01-29 23:23 | CON ---
HISTORY OF PRESENT ILLNESS: The patient is a 32-year-old male with long history of schizoaffective disorder. This policy writer typist is very familiar with this patient from the previous admission to the ICU initially and then transferred to the Psychiatric Inpatient unit. The patient also had a psychiatrist in the community, Dr. Holly. The patient was brought in for evaluation of psychotic symptoms. The patient had impression that somebody is trying to poison him and he has HIV, there is no evidence of that, and the patient was completely disorganized and the patient's girlfriend initiated this admission. This policy writer typist attempted to speak to the patient, but the patient was agitated earlier, got Geodon 20 mg IM as well as Ativan 2 mg IM. The patient presented to be disorganized, psychotic. The patient was accepted by [facility] and the patient is awaiting for bed to be available. This policy writer typist reviewed previous admission and the patient was admitted to the psychiatric inpatient unit in 05/2016. The patient was doing well on Depakote and Zyprexa. This policy writer typist will implement Zyprexa Zydis as well as medication for insomnia and in case of agitation, Geodon will be started as needed. PHYSICAL EXAMINATION: VITAL SIGNS: This policy writer typist reviewed. Vital signs seem to be stable, but the patient has mild elevated blood pressure. MEDICATIONS: Reviewed. The patient was doing well on Seroquel and Depakote. This policy writer typist resumed Seroquel. Trazodone will be started 50 mg at night time and Geodon 20 mg q. 6 hours as needed for severe agitation will be started. LABORATORY DATA: Reviewed. Urine drug screen was positive for cannabis. MENTAL STATUS EXAMINATION: Not possible because the patient is status post IM and deeply sleeping, but based on the history the patient was paranoid, disorganized in his thoughts and behavior, had feeling that somebody is poisoning him and the patient had somatic delusions that he is HIV positive. IMPRESSION: As per history, the patient has schizoaffective disorder bipolar type. Rule out schizophrenia. PLAN: Continue current management. Seroquel was started 50 mg twice a day and also Geodon as need started. The patient is awaiting for bed to be available at [facility]. We will follow up and advice accordingly. Thank you very much for letting me participate in the care of your patient. Miriam Santos MD [facility] # [id number]
--- NOTE | 2017-01-30 07:21 | ED PDOC ---
Physical Exam Vital Signs Temp Pulse Resp BP Pulse Ox 01/30/17 13:21 79 18 118/68 100 01/30/17 11:30 75 18 120/70 99 01/30/17 09:30 80 18 110/70 99 01/30/17 07:46 76 18 118/70 97 01/30/17 06:00 83 20 126/76 100 01/30/17 04:00 66 18 123/67 99 01/30/17 02:00 64 16 125/64 100 01/30/17 00:00 65 16 125/67 99 01/29/17 22:00 98.0 F 63 16 124/63 100 01/29/17 21:00 79 18 132/84 100 01/29/17 19:00 75 18 135/73 100 01/29/17 15:46 83 18 140/70 100 01/29/17 12:00 98.7 F 76 18 130/77 97 01/28/17 15:00 98.5 F 77 18 130/91 H 99 01/28/17 13:00 98.0 F 72 18 110/74 99 01/28/17 11:00 98.3 F 92 H 18 132/87 99 01/28/17 09:00 98.1 F 66 18 102/66 98 01/28/17 07:30 98.3 F 72 18 118/81 100 01/28/17 04:00 98.3 F 69 18 122/87 100 01/28/17 02:00 98.3 F 74 18 121/75 100 01/27/17 23:52 98.3 F 83 18 138/85 99 01/27/17 19:28 90 16 127/79 97 01/27/17 17:30 99.6 F 101 H 20 147/70 99 Medical Decision Making ED Course and Treatment: 01/30/17 07:20 Patient pending [facility] bed, no issues present at this time. 01/30/17 11:30 Patient comfortable at this time. Pending [facility] bed. 01/30/17 18:13 Patient calm and cooperative. He was given a nicotine patch. 01/30/17 19:[address] Mccord to f/u [facility] bed availability. - Lab Interpretations Lab Results: 01/27/17 18:25 01/27/17 18:25 Lab Results 01/27/17 21:11: Alcohol, Quantitative < 10 01/27/17 18:25: Urine Color Yellow, Urine Appearance Clear, Urine pH 6.0, Ur Specific [place] >= 1.030, Urine Protein Negative, Urine Glucose (UA) Negative, Urine Ketones Trace H, Urine Blood Negative, Urine Nitrate Negative, Urine Bilirubin Negative, Urine Urobilinogen 0.2, Ur Leukocyte Esterase Negative 01/27/17 18:25: Urine Opiates Screen Negative, Urine Methadone Screen Negative, Ur Barbiturates Screen Negative, Ur Phencyclidine Scrn Negative, Ur Amphetamines Screen Negative, U Benzodiazepines Scrn Negative, U Oth Cocaine Metabols Negative, U Cannabinoids Screen Positive H 01/27/17 18:25: Sodium 141, Potassium 3.6, Chloride 108 H, Carbon Dioxide 24, Anion Gap 13, BUN 13, Creatinine 0.7, Est GFR ( Amer) > 60, Est GFR (Non- Af Amer) > 60, Random Glucose 107, Calcium 9.7, Total Bilirubin 0.7, AST 50, ALT 50, Alkaline Phosphatase 65, Total Protein 7.4, Albumin 4.4, Globulin 3.0, Albumin/Globulin Ratio 1.5, Lipase 75 01/27/17 18:25: WBC 7.7 D, RBC 4.06, Hgb 12.6 L, Hct 35.9 L, MCV 88.4, MCH 31.0 , MCHC 35.1, RDW 12.8, Plt Count 370, MPV 9.7 - RAD Interpretation Radiology Orders: 01/27/17 18:13 CHEST PORTABLE [RAD] Stat - Medication Orders Current Medication Orders: Quetiapine Fumarate (Seroquel) 100 mg PO AMHS BOB PRN Reason: Protocol Last Admin: 01/30/17 09:51 Dose: 100 mg Trazodone HCl (Desyrel) 50 mg PO HS PRN PRN Reason: Insomnia Last Admin: 01/29/17 22:56 Dose: 50 mg Ziprasidone (Geodon Inj) 20 mg IM Q6H PRN; Protocol PRN Reason: severe agitation/psychosis Last Admin: 01/29/17 15:40 Dose: 20 mg Discontinued Medications Alprazolam (Xanax) 0.5 mg PO STAT STA PRN Reason: Protocol Stop: 01/27/17 18:56 Last Admin: 01/27/17 19:23 Dose: 0.5 mg Diphenhydramine HCl (Benadryl) Confirm Administered Dose 50 mg .ROUTE .STK-MED ONE Stop: 01/29/17 16:32 Last Admin: 01/29/17 16:35 Dose: 50 mg Haloperidol Lactate (Haldol) Confirm Administered Dose 5 mg .ROUTE .STK-MED ONE Stop: 01/29/17 16:33 Last Admin: 01/29/17 16:35 Dose: 5 mg Lorazepam (Ativan) Confirm Administered Dose 2 mg .ROUTE .STK-MED ONE Stop: 01/27/17 23:31 Last Admin: 01/27/17 23:52 Dose: Lorazepam (Ativan) 2 mg IVP ONCE STA PRN Reason: Protocol Stop: 01/27/17 23:48 Last Admin: 01/27/17 23:57 Dose: 2 mg Lorazepam (Ativan) Confirm Administered Dose 2 mg .ROUTE .STK-MED ONE Stop: 01/28/17 05:16 Last Admin: 01/28/17 06:41 Dose: Lorazepam (Ativan) 2 mg IVP ONCE ONE PRN Reason: Protocol Stop: 01/28/17 06:08 Last Admin: 01/28/17 06:41 Dose: 2 mg Lorazepam (Ativan) 0.5 mg PO STAT STA PRN Reason: Protocol Stop: 01/28/17 12:13 Last Admin: 01/28/17 16:14 Dose: Lorazepam (Ativan) 2 mg IVP ONCE ONE PRN Reason: Protocol Stop: 01/28/17 12:18 Last Admin: 01/28/17 12:29 Dose: 2 mg Lorazepam (Ativan) 2 mg IM ONCE ONE PRN Reason: Protocol Stop: 01/28/17 15:50 Last Admin: 01/28/17 16:14 Dose: 2 mg Lorazepam (Ativan) Confirm Administered Dose 2 mg .ROUTE .STK-MED ONE Stop: 01/29/17 16:33 Last Admin: 01/29/17 16:35 Dose: 2 mg Nicotine (Nicoderm Cq) 1 patch TD STAT STA Stop: 01/30/17 15:52 Last Admin: 01/30/17 16:32 Dose: 1 patch Quetiapine Fumarate (Seroquel) 50 mg PO AMHS BOB PRN Reason: Protocol Last Admin: 01/29/17 22:56 Dose: 50 mg Ziprasidone (Geodon Inj) Confirm Administered Dose 20 mg IM .STK-MED ONE Stop: 01/27/17 23:47 Last Admin: 01/27/17 23:52 Dose: Ziprasidone (Geodon Inj) 10 mg IM STAT STA PRN Reason: Protocol Stop: 01/27/17 23:48 Last Admin: 01/27/17 23:57 Dose: 10 mg Ziprasidone (Geodon Inj) 20 mg IM STAT STA PRN Reason: Protocol Stop: 01/29/17 07:21 Last Admin: 01/29/17 07:37 Dose: 20 mg - Scribe Statement Nohemi Miller Provider Scribe Attestation: All medical record entries made by the Scribe were at my direction and personally dictated by me. I have reviewed the chart and agree that the record accurately reflects my personal performance of the history, physical exam, medical decision making, and the department course for this patient. I have also personally directed, reviewed, and agree with the discharge instructions and disposition. Disposition/Present on Arrival - Present on Arrival Any Indicators Present on Arrival: No History of DVT/PE: No History of Uncontrolled Diabetes: No Urinary Catheter: No History of Decub. Ulcer: No History Surgical Site Infection Following: None - Disposition Have Diagnosis and Disposition been Completed?: Yes Diagnosis: Anxiety, Bipolar disorder without psychotic features Disposition Time: 18:13 Condition: STABLE Referrals: Marcia Singer MD [Primary Care Provider] - Follow up with primary Forms: [employer] (Persian)
[2017-01-30 07:47] VITALS: RESP 18
--- NOTE | 2017-01-30 20:24 | ED PDOC ---
Physical Exam Vital Signs Reviewed: Yes Vital Signs Temp Pulse Resp BP Pulse Ox 01/31/17 01:29 96 H 18 137/100 H 99 01/30/17 13:21 79 18 118/68 100 01/30/17 11:30 75 18 120/70 99 01/30/17 09:30 80 18 110/70 99 01/30/17 07:46 76 18 118/70 97 01/30/17 06:00 83 20 126/76 100 01/30/17 04:00 66 18 123/67 99 01/30/17 02:00 64 16 125/64 100 01/30/17 00:00 65 16 125/67 99 01/29/17 22:00 98.0 F 63 16 124/63 100 01/29/17 21:00 79 18 132/84 100 01/29/17 19:00 75 18 135/73 100 01/29/17 15:46 83 18 140/70 100 01/29/17 12:00 98.7 F 76 18 130/77 97 01/28/17 15:00 98.5 F 77 18 130/91 H 99 01/28/17 13:00 98.0 F 72 18 110/74 99 01/28/17 11:00 98.3 F 92 H 18 132/87 99 01/28/17 09:00 98.1 F 66 18 102/66 98 01/28/17 07:30 98.3 F 72 18 118/81 100 01/28/17 04:00 98.3 F 69 18 122/87 100 01/28/17 02:00 98.3 F 74 18 121/75 100 01/27/17 23:52 98.3 F 83 18 138/85 99 01/27/17 19:28 90 16 127/79 97 01/27/17 17:30 99.6 F 101 H 20 147/70 99 Temperature: Afebrile Blood Pressure: Normal Pulse: Tachycardic Respiratory Rate: Normal Appearance: Positive for: Well-Appearing, Non-Toxic, Comfortable Pain Distress: None Mental Status: Positive for: Alert and Oriented X 3 - Systems Exam Head: Present: Atraumatic, Normocephalic Pupils: Present: PERRL Extroacular Muscles: Present: EOMI Conjunctiva: Present: Normal Mouth: Present: Moist Mucous Membranes Neck: Present: Normal Range of Motion Respiratory/Chest: Present: Clear to Auscultation, Good Air Exchange. No: Respiratory Distress, Accessory Muscle Use Cardiovascular: Present: Regular Rate and Rhythm, Normal S1, S2. No: Murmurs Abdomen: Present: Normal Bowel Sounds. No: Tenderness, Distention, Peritoneal Signs Back: Present: Normal Inspection Upper Extremity: Present: Normal Inspection. No: Cyanosis, Edema Lower Extremity: Present: Normal Inspection. No: Edema Neurological: Present: GCS=15, CN II-XII Intact, Speech Normal Skin: Present: Warm, Dry, Normal Color. No: Rashes Psychiatric: Present: Alert, Oriented x 3, Normal Insight, Normal Concentration Medical Decision Making ED Course and Treatment: 01/30/17 20:22: Patient still in emergency department awaiting [facility]. Case endorsed to me by Dr. Gutierrez. - Lab Interpretations Lab Results: 01/27/17 18:25 01/27/17 18:25 Lab Results 01/27/17 21:11: Alcohol, Quantitative < 10 01/27/17 18:25: Urine Color Yellow, Urine Appearance Clear, Urine pH 6.0, Ur Specific Avella >= 1.030, Urine Protein Negative, Urine Glucose (UA) Negative, Urine Ketones Trace H, Urine Blood Negative, Urine Nitrate Negative, Urine Bilirubin Negative, Urine Urobilinogen 0.2, Ur Leukocyte Esterase Negative 01/27/17 18:25: Urine Opiates Screen Negative, Urine Methadone Screen Negative, Ur Barbiturates Screen Negative, Ur Phencyclidine Scrn Negative, Ur Amphetamines Screen Negative, U Benzodiazepines Scrn Negative, U Oth Cocaine Metabols Negative, U Cannabinoids Screen Positive H 01/27/17 18:25: Sodium 141, Potassium 3.6, Chloride 108 H, Carbon Dioxide 24, Anion Gap 13, BUN 13, Creatinine 0.7, Est GFR ( Amer) > 60, Est GFR (Non- Af Amer) > 60, Random Glucose 107, Calcium 9.7, Total Bilirubin 0.7, AST 50, ALT 50, Alkaline Phosphatase 65, Total Protein 7.4, Albumin 4.4, Globulin 3.0, Albumin/Globulin Ratio 1.5, Lipase 75 01/27/17 18:25: WBC 7.7 D, RBC 4.06, Hgb 12.6 L, Hct 35.9 L, MCV 88.4, MCH 31.0 , MCHC 35.1, RDW 12.8, Plt Count 370, MPV 9.7 - RAD Interpretation Radiology Orders: 01/27/17 18:13 CHEST PORTABLE [RAD] Stat - Medication Orders Current Medication Orders: Quetiapine Fumarate (Seroquel) 100 mg PO AMHS BOB PRN Reason: Protocol Last Admin: 01/31/17 01:29 Dose: 100 mg Trazodone HCl (Desyrel) 50 mg PO HS PRN PRN Reason: Insomnia Last Admin: 01/29/17 22:56 Dose: 50 mg Ziprasidone (Geodon Inj) 20 mg IM Q6H PRN; Protocol PRN Reason: severe agitation/psychosis Last Admin: 01/29/17 15:40 Dose: 20 mg Discontinued Medications Alprazolam (Xanax) 0.5 mg PO STAT STA PRN Reason: Protocol Stop: 01/27/17 18:56 Last Admin: 01/27/17 19:23 Dose: 0.5 mg Diphenhydramine HCl (Benadryl) Confirm Administered Dose 50 mg .ROUTE .STK-MED ONE Stop: 01/29/17 16:32 Last Admin: 01/29/17 16:35 Dose: 50 mg Haloperidol Lactate (Haldol) Confirm Administered Dose 5 mg .ROUTE .STK-MED ONE Stop: 01/29/17 16:33 Last Admin: 01/29/17 16:35 Dose: 5 mg Lorazepam (Ativan) Confirm Administered Dose 2 mg .ROUTE .STK-MED ONE Stop: 01/27/17 23:31 Last Admin: 01/27/17 23:52 Dose: Lorazepam (Ativan) 2 mg IVP ONCE STA PRN Reason: Protocol Stop: 01/27/17 23:48 Last Admin: 01/27/17 23:57 Dose: 2 mg Lorazepam (Ativan) Confirm Administered Dose 2 mg .ROUTE .STK-MED ONE Stop: 01/28/17 05:16 Last Admin: 01/28/17 06:41 Dose: Lorazepam (Ativan) 2 mg IVP ONCE ONE PRN Reason: Protocol Stop: 01/28/17 06:08 Last Admin: 01/28/17 06:41 Dose: 2 mg Lorazepam (Ativan) 0.5 mg PO STAT STA PRN Reason: Protocol Stop: 01/28/17 12:13 Last Admin: 01/28/17 16:14 Dose: Lorazepam (Ativan) 2 mg IVP ONCE ONE PRN Reason: Protocol Stop: 01/28/17 12:18 Last Admin: 01/28/17 12:29 Dose: 2 mg Lorazepam (Ativan) 2 mg IM ONCE ONE PRN Reason: Protocol Stop: 01/28/17 15:50 Last Admin: 01/28/17 16:14 Dose: 2 mg Lorazepam (Ativan) Confirm Administered Dose 2 mg .ROUTE .STK-MED ONE Stop: 01/29/17 16:33 Last Admin: 01/29/17 16:35 Dose: 2 mg Nicotine (Nicoderm Cq) 1 patch TD STAT STA Stop: 01/30/17 15:52 Last Admin: 01/30/17 16:32 Dose: 1 patch Quetiapine Fumarate (Seroquel) 50 mg PO AMHS BOB PRN Reason: Protocol Last Admin: 01/29/17 22:56 Dose: 50 mg Ziprasidone (Geodon Inj) Confirm Administered Dose 20 mg IM .STK-MED ONE Stop: 01/27/17 23:47 Last Admin: 01/27/17 23:52 Dose: Ziprasidone (Geodon Inj) 10 mg IM STAT STA PRN Reason: Protocol Stop: 01/27/17 23:48 Last Admin: 01/27/17 23:57 Dose: 10 mg Ziprasidone (Geodon Inj) 20 mg IM STAT STA PRN Reason: Protocol Stop: 01/29/17 07:21 Last Admin: 01/29/17 07:37 Dose: 20 mg - Jonibe Statement The provider has reviewed the documentation as recorded by the Jak Wilson Provider Scribe Attestation: All medical record entries made by the Jak were at my direction and personally dictated by me. I have reviewed the chart and agree that the record accurately reflects my personal performance of the history, physical exam, medical decision making, and the department course for this patient. I have also personally directed, reviewed, and agree with the discharge instructions and disposition. Disposition/Present on Arrival - Present on Arrival Any Indicators Present on Arrival: No History of DVT/PE: No History of Uncontrolled Diabetes: No Urinary Catheter: No History of Decub. Ulcer: No History Surgical Site Infection Following: None - Disposition Have Diagnosis and Disposition been Completed?: Yes Diagnosis: Anxiety, Bipolar disorder without psychotic features Disposition: Transfer [facility] [place] Disposition Time: 01:36 Condition: STABLE Referrals: Marcia Singer MD [Primary Care Provider] - Follow up with primary Forms: [employer] ([place])
--- NOTE | 2017-01-30 21:00 | PN ---
SUBJECTIVE: The patient was followed up today. The patient presented a bit disorganized. The patient was acting bizarre, was covering his face when this parts data writer attempted to speak to the patient. The patient whispered that he has herpes and HIV, that is why he cannot talk to this parts data writer and stayed quiet. As per emergency room nursing report, the patient is bizarre, disorganized in his thoughts and behavior, but the patient was compliant with the medications. LABORATORY DATA: There are no new labs. MENTAL STATUS EXAMINATION: The patient presented to be disorganized. The patient shaved his head, which gives patient a really weird look. Intense eye contact, but when this parts data writer attempted to speak to the patient, patient was covering his face saying that he has HIV as well as herpes. Mood, patient was not able to describe. Affect was flat. Though process disorganized. Thought content, patient presented a bit delusional, paranoid, and psychotic. The patient was not able to answer if he has any thoughts of killing himself or others. Insight and judgement are very limited. Impulses are better controlled. IMPRESSION: The patient has history or schizophrenia spectrum verus schizoaffective disorder. PLAN: Continue current management. Seroquel was increased. P.r.n. orders are given. The patient is waiting for [facility] bed to be available. After that, patient will be transferred for involuntary commitment. The patient is on one-to-one. Thank you very much for letting me participate in care of your patient. Should you have any questions, give me a call back. Miriam Santos MD
[2017-01-31 01:35] VITALS: PULSE 96; O2SAT 99
[2017-01-31 01:51] VITALS: BP 137/90
== END 2017-01-31 01:51 | disposition short-term general hospital (02) ==
LOC: ED 17:20
DX: F41.9 Anxiety disorder, unspecified (principal); F31.9 Bipolar disorder, unspecified; F17.210 Nicotine dependence, cigarettes, uncomplicated
CPT/HCPCS: 71010; 80053; 81003; 83690; 85027; 90791; 93005; 96372; 96374; 99285; G0480; J1200; J1630; J2060; J3486